=== PATIENT | male | born 1950 | race Caucasian/White ===

== ENCOUNTER 2021-08-05 20:01 | Emergency (ER) | payer MEDICARE ==
[~2021-08-05] VITALS: Ht 172.7 cm; Wt 100.7 kg
[2021-08-05] MEDS ORDERED: IV NS 0.9% 1,000 ML BAG IV ONE (20:30)
[2021-08-05] MEDS ORDERED: FAMOTIDINE/PF INJ 20 MG/2 ML VIAL IV ONE ×2 (20:30→20:43)
[2021-08-05] MEDS ORDERED: methylPREDNISolone SOD SUCC 125 MG/2ML VIAL IV ONE (20:30)
[2021-08-05] MEDS ORDERED: diphenhydrAMINE HCL 50 MG/ML VIAL IV ONE (20:30)
[2021-08-05] MEDS ORDERED: diphenhydrAMINE HCL 50 MG/ML VIAL ONE (20:42)
[2021-08-05] MEDS ORDERED: methylPREDNISolone SOD SUCC 125 MG/2ML VIAL ONE (20:43)
--- NOTE | 2021-08-05 22:12 | NUR ---
BIB FAMILY FOR C/O ITCHY THROAT AND SCALP AND UPSET STOMACH DUE TO ALLERGIC REACTION. USED EPI PEN 20 MIN CARGO BRACER. PATIENT ALERT AND ORIENTED X3. AMBULATORY PLACED IN BED 02 ON MONITOR AND POX.
[2021-08-05] MEDS ORDERED: EPIN0.3P3 IM (23:25)
--- NOTE | 2021-08-05 23:43 | NUR ---
IV removed. Catheter intact and site benign. Pressure and 4x4 applied to site. No bleeding noted.Patient discharged to home in stable condition. Written and verbal after care instructions given. Patient verbalizes understanding of instruction.
[2021-08-06 00:06] VITALS: BP 154/88
== END 2021-08-06 00:06 | disposition home or self-care (01) ==
LOC: ER 20:07
DX: T78.2XXA Anaphylactic shock, unspecified, initial encounter (principal); I10 Essential (primary) hypertension; I48.91 Unspecified atrial fibrillation; Z91.018 Allergy to other foods
CPT/HCPCS: 93005; 96374; 96375; 99285; J1200; J2930; J3490; J7030